=== PATIENT | female | born 1965 | race Caucasian/White ===

== ENCOUNTER → 2024-01-17 13:00 | Outpatient (REF) | payer OTHER, SELFPAY | LOC: WDC 13:00 | PROVIDERS: ATTENDING PHYSICIAN Nurse Practitioner | DX: N64.4 Mastodynia (principal) | CPT/HCPCS: 76642 ==

== ENCOUNTER → 2024-06-03 08:59 | Outpatient (REF) | payer OTHER, SELFPAY | LOC: WDC 08:59 | PROVIDERS: ATTENDING PHYSICIAN Internal Medicine | DX: Z12.31 Encounter for screening mammogram for malignant neoplasm of breast (principal) | CPT/HCPCS: 77063; 77067 ==

== ENCOUNTER → 2025-05-04 15:40 | Outpatient (REF) | payer OTHER, SELFPAY | LOC: RAD 15:40 | PROVIDERS: ATTENDING PHYSICIAN Internal Medicine | DX: M54.50 Low back pain, unspecified (principal) | CPT/HCPCS: 72110 ==

== ENCOUNTER 2025-05-07 17:01 | Emergency (ER) | payer OTHER, SELFPAY ==
[2025-05-07 17:03] VITALS: BP 116/79
[2025-05-07 17:23] LABS: Hematocrit 41.5 % (37.0-47.0); Hemoglobin 14.1 g/dL (12.0-16.0); Mean Corp Hgb Conc. 34.0 g/dL (33.0-37.0); Mean Corpuscular Volume 88.1 fL (81.0-99.0); Nucleated Red Blood Cells % 0 %; Platelet Count 279 10^3/uL (130-400); Red Cell Dist. Width 11.9 % (11.5-14.5)
[2025-05-07 17:24] LABS: Urine Character Clear (Clear)
[2025-05-07 17:32] LABS: Urine White Cell 0-2 /HPF (0-5)
[2025-05-07 17:48] LABS: ALT (SGPT) 131 U/L (0-35); AST (SGOT) 34 U/L (14-36); Albumin 4.3 g/dl (3.5-5.0); Alkaline Phosphatase 224 U/L (38-126); Blood Urea Nitrogen 13 mg/dl (7-17); Calcium 9.1 mg/dl (8.4-10.2); Carbon Dioxide 26 mmol/L (22-30); Chloride 104 mmol/L (98-107); Glucose 87 mg/dl (70-99); Potassium 4.3 mmol/L (3.5-5.1); Sodium 139 mmol/L (135-145); Total Protein 7.5 g/dl (6.3-8.2); eGFR > 60.00
[2025-05-07 17:49] LABS: Lipase 95 U/L (23-300)
[2025-05-07 20:11] VITALS: BP 105/71
[2025-05-07 20:33] VITALS: BMI 29.9
--- NOTE | 2025-05-07 20:33 | ED.GENMED ---
History of Present Illness
General
Chief Complaint: Abdominal Pain
Source: patient
Exam Limitations: none
Time Seen by Provider: 05/07/25 20:17
Nursing documentation reviewed up to this point in time: agreed with
History of Present Illness
History of Present Illness:
Note:
CHIEF COMPLAINT(S)
Right-sided abdominal pain and lower back pain.
HISTORY OF PRESENT ILLNESS
The patient is a 60-year-old female with a pmh of diverticulitis who presented to the ER today with right-sided abdominal pain and lower back pain. Approximately two weeks ago, the patient began experiencing low back pain without any identifiable
injury. She has a 35-pound grandson whom she frequently lifts. She started taking ibuprofen last week due to the back pain. Over the past weekend, while the back pain persisted, abdominal pain began and gradually worsened after eating. The back pain
has resolved by this point.
The patient visited her primary care physician, underwent X-rays, and was informed of mild degenerative arthritis but nothing severe related to her pain. She initiated a liquid diet on Saturday due to persistent severe pain and nausea. Despite the
dietary change, she continues to suffer from severe abdominal pains, exacerbated by eating solid foods such as toast.
The pain is characterized by severe gas-like pain. She describes her abdominal muscles feeling strained during episodes, similar to a previous bowel obstruction episode. She reports bloating, vomiting, and feels pressure in her rectal region that
gives an impression of urgency but does not relieve after urination. She states she has experienced diarrhea and reports observing streak of blood in her stool once a week, but attributes it to hemorrhoids.
ADDITIONAL HISTORY OBTAINED FROM SOURCES OTHER THAN THE PATIENT
Not applicable.
EXTERNAL RECORDS REVIEWED
The patient mentions undergoing X-rays during a recent primary care visit, revealing mild degenerative arthritic changes but nothing significant.
CHRONIC MEDICAL CONDITIONS SIGNIFICANTLY AFFECTING CARE
History of bowel obstruction and diverticulitis.
SOCIAL DETERMINANTS AFFECTING HEALTH
Not discussed.
ALLERGIES
No known drug allergies, including IV contrast.
PAST MEDICAL HISTORY
Previously diagnosed with severe bowel obstruction and diverticulitis, which led to hospitalization.
PAST SURGICAL HISTORY
Appendectomy performed as per patients account.
FAMILY HISTORY
Not discussed.
IMMUNIZATION HISTORY
Not discussed.
SOCIAL HISTORY
Not discussed.
MEDICATIONS
The patient has been self-medicating with ibuprofen (Advil).
REVIEW OF SYSTEMS
- Gastrointestinal: right-sided abdominal pain exacerbated by food intake, vomiting, diarrhea, bloating, pressure sensation in rectal region.
- Musculoskeletal: Low back pain.
- Constitutional: Episodes of feeling feverish, denies definitive fever.
PHYSICAL EXAM
- Nursing notes reviewed and vital signs reviewed.
General: Patient is well appearing and in no acute distress; non-toxic
Skin: Warm and dry, no rashes or lesions
Head: Normocephalic, atraumatic
Eyes: Sclera non-icteric. EOMs intact.
Cardiac: Regular rate and rhythm, no murmurs
Peripheral Vascular: No lower extremity swelling or edema
Pulm: Normal respiratory effort
Abdomen: Right lower quadrant abdominal tenderness to palpation
Neuro: CN II-XII intact, no focal neurologic deficits.
Psychiatric: Appropriate mood and affect.
PROBLEM LIST
- Acute right-sided abdominal pain
- History of bowel obstruction, patient states that today feels similar
- Diverticulitis
PLAN
- Initiate pain control with Ketorolac
- Perform a Computed Tomography (CT) scan to evaluate for potential diverticulitis, bowel obstruction, or other abdominal pathology.
DIFFERENTIAL DIAGNOSIS
The Differential Diagnosis includes, in no particular order and is not limited to:
1. Bowel Obstruction
2. Diverticulitis
3. Gastrointestinal perforation
4. Biliary colic
5. Pancreatitis
6. Renal colic
7. Peptic ulcer disease
8. Appendicitis
9. Inflammatory bowel disease
10. Ovarian torsion or other gynecological pathology
CHART REVIEW
reviewed colonoscopy from 08/24/22 patient underwent colonoscopy which showed diverticulosis and internal hemorrhoids but was otherwise normal
reviewed discharge summary from 10/19/18 patient seen for acute abdominal pain, sepsis likely secondary to diverticulitis/salpingitis
MDM/DISPOSITION
The patient is a 60-year-old female with a pmh of diverticulitis who presented to the ER today with right-sided abdominal pain and lower back pain. The back pain has resolved but the abdominal pain persisted. CT scan shows acute sigmoid
diverticulitis as well as protruded L2-L3 disc. She has no associated fevers or chills. No evidence of abscess or perforation. Labwork unremarkable. Urine shows microscopic hematuria. Documented allergy to keflex although patient has tolerated
amoxicillin in the recent past. Will initiate Augmentin. Patient stable for discharge.
Past History
Past History
ED Past Medical History: Asthma
ED Past Surgical History: Appendectomy, Cholecystectomy, and Gynecological
Social History
Tobacco: Non-smoker
Alcohol: Occasional
Personal:
Living: with family
Employment: Employed
Review of Systems
Review of Systems
All Other Systems: ROS reviewed and negative except as documented in HPI and ROS
Phy Exam
Physical Exam
Physical Exam:
see hpi
Course
Orders/Labs/Results
Orders:
Orders
05/07/25 17:15
Complete Blood Count/With Diff Urgent
Comprehensive Metabolic Panel Urgent
Lipase Urgent
Urinalysis Reflex To Culture Urgent
Date Specimen was Collected: 05/07/25
Time Specimen was Collected: 17:04
Urine Microscopic Reflex Cult Urgent
05/07/25 20:45
CT Abd/pelvis W Iv Cont Urgent
Comment:
Reason For Exam: right sided abdominal pain
05/08/25 00:27
Amoxicillin 875 mg/Clav 125 mg [Augmentin 875 mg/125 mg] 1 tablet PO NOW STA
Abnormal Lab Results
05/07/25
17:15
Absolute Monos (auto) 0.8 H 10^3/uL
(0.1-0.6)
Monocytes % 9.8 H %
(1.7-9.3)
ALT 131 H U/L
(0-35)
Alkaline Phosphatase 224 H U/L
(38-126)
Ur Occult Blood Reflex 2+ A
(Negative)
Urine RBC 3-6 A /HPF
(0-2)
Urine Bacteria (Reflex) Few A
(Negative)
05/07/25 17:15
05/07/25 17:15
Vital Signs
Initial and Last Documented VS:
Initial Vital Signs
Temp Pulse Resp BP Pulse Ox
98.4 F 86 18 116/79 100
05/07/25 17:03 05/07/25 17:03 05/07/25 17:03 05/07/25 17:03 05/07/25 17:03
Last Documented Vital Signs
Temp Pulse Resp BP Pulse Ox
98.4 F 68 18 97/59 99
05/07/25 17:03 05/08/25 00:00 05/08/25 00:00 05/08/25 00:00 05/08/25 00:00
*Pulse Oximetry
SaO2: 100
Oxygen Mode of Delivery: Room air
Patient hypoxic: no
*Critical Care Note
Total Time (30-74mins, 75-104mins- exclusive of procedures): Not Applicable
ED Attending Note
-
Portions of this chart may have been created with voice recognition software.� Occasional wrong word or��sound alike� substitutions may have occurred due to the inherent limitations of voice recognition software.
Discharge Plan
Departure
Patient Disposition: Home (Routine Discharge)
Date of Disposition: 05/08/25
Time of Disposition: 00:33
Patient with high blood pressure during this ER visit?: No
Condition: Good
Discharge Problem:
Acute diverticulitis
Instructions: Diverticulitis - Discharge instructions, BLOOD PRESSURE
Prescriptions:
New
amoxicillin-pot clavulanate 875-125 mg tablet
1 tab PO BID 10 Days Qty: 20 0RF
No Action
sennosides [senna] 1 TABLET tablet
1 tab PO HSPRN PRN (Reason: constipation (bedtime)) 0RF
polyethylene glycol 3350 17 GRAMS powder in packet
17 grams PO DAILYPRN PRN (Reason: constipation) 0RF
sumatriptan succinate [Imitrex] 100 mg Tablet
100 mg PO ONCE PRN (Reason: migraines/headaches)
Referrals:
Nakul Velez MD [Family Provider, Internal Medicine]
Activity Restrictions/Additional Instructions:
Augmentin has been sent to your pharmacy. Please take 1 tablet twice daily for 10 days.
PLEASE RETURN TO THE EMERGENCY DEPARTMENT SHOULD YOU DEVELOP ACUTE WORSENING OR SYMPTOMS, INTRACTABLE NAUSEA OR VOMITING, RECTAL BLEEDING, DARK TARRY STOOLS, CHEST PAIN, SHORTNESS OF BREATH, OR ANY OTHER SIGNS OR SYMPTOMS WORRISOME TO YOU.
Interventions
Interventions:
*Risk Screen - Suicide Last Done: 05/07/25 17:03
*General Assessment Last Done: 05/07/25 17:03
*Neglect/Abuse Screening Last Done: 05/07/25 20:25
*ED- Fall Risk Assessment Last Done: 05/07/25 20:29
*ED COVID-19 Vaccine History Last Done: 05/07/25 17:06
*Nursing Disposition Last Done: 05/08/25 00:44
RM-Ncztjg-Rgvyheivmd Assessment Last Done: 05/07/25 20:36
Discharge Date and Time
Discharge Date/Time: 05/08/25 00:45
Print Language: HUNGARIAN
[2025-05-07 21:00] VITALS: BP 99/61
[2025-05-07 21:22] VITALS: BP 94/54
[2025-05-07 22:04] VITALS: BP 101/74
[2025-05-07 23:00] VITALS: BP 101/62
[2025-05-08] VITALS: BP 97/59
[2025-05-08] MEDS: AUGMENTIN 875 MG/125 MG 1 TABLET PO (00:33)
== END 2025-05-08 00:45 | disposition home or self-care (01) ==
LOC: EMR 17:01
PROVIDERS: Emergency Medicine; EMERGENCY PHYSICIAN Emergency Medicine; FAMILY PHYSICIAN Internal Medicine
DX: K57.33 Diverticulitis of large intestine without perforation or abscess with bleeding (principal); J45.909 Unspecified asthma, uncomplicated; M54.50 Low back pain, unspecified; Z90.49 Acquired absence of other specified parts of digestive tract
CPT/HCPCS: 99284; 74177; 80053; 81003; 81015; 83690; 85025; Q9967

== ENCOUNTER → 2025-06-09 08:41 | Outpatient (REF) | payer OTHER, SELFPAY | LOC: WDC 08:41 | PROVIDERS: ATTENDING PHYSICIAN Internal Medicine | DX: Z12.31 Encounter for screening mammogram for malignant neoplasm of breast (principal) | CPT/HCPCS: 77063; 77067 ==